=== PATIENT | female | born 1990 | race African-American/Black ===

== ENCOUNTER 2018-02-14 15:52 | Emergency (ER) | payer SELFPAY | END 2018-02-14 17:40 | disposition home or self-care (01) | LOC: ERS 15:52 | DX: K02.9 Dental caries, unspecified (principal) | CPT/HCPCS: 99282 ==

== ENCOUNTER 2018-09-11 23:06 | Emergency (ER) | payer SELFPAY ==
[2018-09-11 23:48] LABS: #Basophils 0.1 thou/uL (0.0-0.2); #Eosinphils 0.1 thou/uL (0.0-0.7); #Monocytes 0.6 thou/uL (0.11-0.59); #Neutrophils 5.2 thou/uL (1.40-6.50); %Basophils 1.3 % (0.0-1.0); %Eosinophils 0.9 % (0.0-10.0); %Lymphocytes 40.1 % (21.0-51.0); %Monocytes 6.1 % (0.0-10.0); %Neutrophils 51.6 % (42.0-75.0); Hemoglobin 10.6 g/dL (12.0-16.0); Mean Corpuscular HGB CONC 31.6 g/dL (32.0-36.0); Mean Corpuscular Volume 82.1 fL (78.0-98.0); Mean Platelet Volume 8.2 fL (7.4-10.4); Platelet Count 270 thou/uL (130-400); RBC Distribution Width 13.1 % (11.5-14.5); Red Blood Cell (RBC) Count 4.07 mill/uL (4.20-5.40); White Blood Cell (WBC) Count 10.1 thou/uL (4.8-10.8)
--- NOTE | 2018-09-11 23:54 | RAD ---
PA AND LATERAL OF THE CHEST: 09/11/18 INDICATION: Chest pain. COMPARISON: None. FINDINGS: Lungs are clear. Cardiomediastinal silhouette is within normal limits. No acute osseous abnormality i s evident. IMPRESSION: No acute cardiopulmonary abnormality. POS: [facility]
[2018-09-12 00:09] LABS: ALT (SGPT) 12 U/L (8-55); AST (SGOT) 14 U/L (5-34); Albumin 4.2 g/dL (3.5-5.0); Alkaline Phosphatase 70 U/L (40-150); Anion Gap 13 mmol/L (10-20); BUN (Urea Nitrogen) 13 mg/dL (7.0-18.7); Bilirubin, Total 0.3 mg/dL (0.2-1.2); CK (CPK) 96 U/L (29-168); Calc. Creatinine Clearance 0 mL/min (70-130); Calcium 9.7 mg/dL (7.8-10.44); Carbon Dioxide 25 mmol/L (22-29); Chloride 105 mmol/L (98-107); Estimated GFR-MDRD Greater than 90; Globulin 3.1 g/dL (2.4-3.5); Glucose 99 mg/dL (70-105); Lipase 94 U/L (8-78); Potassium 3.6 mmol/L (3.5-5.1); Protein, Total 7.3 g/dL (6.0-8.3); Sodium 139 mmol/L (136-145)
[2018-09-12 00:12] LABS: CKMB 0.8 ng/mL (0-6.6); Troponin I Less than 0.010 ng/mL (< 0.028)
== END 2018-09-12 01:47 | disposition home or self-care (01) ==
LOC: ERS 23:06
DX: R07.2 Precordial pain (principal)
CPT/HCPCS: 36415; 71046; 80053; 82553; 83690; 83880; 84484; 85025; 93005

== ENCOUNTER 2019-09-02 15:55 | Emergency (ER) | payer SELFPAY | END 2019-09-02 16:22 | disposition home or self-care (01) | LOC: ERS 15:55 | DX: K04.01 Reversible pulpitis (principal); K02.9 Dental caries, unspecified; K03.81 Cracked tooth | CPT/HCPCS: 99282 ==

== ENCOUNTER 2019-09-18 15:47 | Emergency (ER) | payer SELFPAY | END 2019-09-18 16:38 | disposition home or self-care (01) | LOC: ERS 15:47 | DX: K04.7 Periapical abscess without sinus (principal); K02.9 Dental caries, unspecified ==

== ENCOUNTER 2020-12-29 12:10 | Emergency (ER) | payer MEDICAID, SELFPAY ==
[2020-12-29 12:38] LABS: #Monocytes 0.7 thou/uL (0.11-0.59); #Neutrophils 6.8 thou/uL (1.40-6.50); %Basophils 0.4 % (0.0-1.0); %Eosinophils 0.4 % (0.0-10.0); %Lymphocytes 28.4 % (21.0-51.0); %Monocytes 6.9 % (0.0-10.0); %Neutrophils 63.9 % (42.0-75.0); Hemoglobin 9.3 g/dL (12.0-16.0); Mean Corpuscular HGB CONC 32.1 g/dL (32.0-36.0); Mean Corpuscular Hemoglobin 24.7 pg (27.0-31.0); Mean Corpuscular Volume 76.9 fL (78.0-98.0); Mean Platelet Volume 8.1 fL (7.4-10.4); Platelet Count 279 thou/uL (130-400); RBC Distribution Width 14.3 % (11.5-14.5); Red Blood Cell (RBC) Count 3.76 mill/uL (4.20-5.40); White Blood Cell (WBC) Count 10.6 thou/uL (4.8-10.8)
== END 2020-12-29 14:31 | disposition left against medical advice (07) ==
LOC: ERS 12:10
DX: Z53.21 Procedure and treatment not carried out due to patient leaving prior to being seen by health care provider (principal)
CPT/HCPCS: 36415; 84702; 85025; 86900; 86901

== ENCOUNTER 2021-03-18 08:32 | Outpatient (CLI) | payer OTHER | END 2021-03-18 08:33 | disposition home or self-care (01) | LOC: BICULT 08:32 | PROVIDERS: ATTEND Family Medicine | DX: O09.892 Supervision of other high risk pregnancies, second trimester (principal); Z3A.20 20 weeks gestation of pregnancy | CPT/HCPCS: 76805 ==

== ENCOUNTER 2024-12-18 13:52 | Emergency (ER) | payer MEDICAID, SELFPAY | END 2024-12-18 15:06 | disposition left against medical advice (07) | LOC: ERS 13:52 | DX: Z53.21 Procedure and treatment not carried out due to patient leaving prior to being seen by health care provider (principal) ==